=== PATIENT | male | born 1960 | race Caucasian/White ===

== ENCOUNTER → 2021-05-08 | Outpatient (CLI) | payer OTHER | LOC: ULTRA 13:57 | PROVIDERS: ATTEND Nurse Practitioner | DX: S83.242A Other tear of medial meniscus, current injury, left knee, initial encounter (principal); M25.462 Effusion, left knee; I82.432 Acute embolism and thrombosis of left popliteal vein; X58.XXXA Exposure to other specified factors, initial encounter; Y93.89 Activity, other specified; Y92.89 Other specified places as the place of occurrence of the external cause; Y99.8 Other external cause status ==

== ENCOUNTER → 2021-05-31 | Outpatient (CLI) | payer OTHER | LOC: ULTRA 10:53 | PROVIDERS: ATTEND Nurse Practitioner | DX: I82.409 Acute embolism and thrombosis of unspecified deep veins of unspecified lower extremity (principal) ==

== ENCOUNTER → 2021-07-01 | Outpatient (CLI) | payer OTHER | LOC: ULTRA 10:08 | PROVIDERS: ATTEND Internal Medicine Hematology & Oncology | DX: I82.432 Acute embolism and thrombosis of left popliteal vein (principal); I82.442 Acute embolism and thrombosis of left tibial vein; I82.411 Acute embolism and thrombosis of right femoral vein ==

== ENCOUNTER → 2021-12-30 | Outpatient (CLI) | payer OTHER | LOC: CAT 08:03 | PROVIDERS: ATTEND Family Medicine | DX: Z13.6 Encounter for screening for cardiovascular disorders (principal); I25.10 Atherosclerotic heart disease of native coronary artery without angina pectoris; E78.00 Pure hypercholesterolemia, unspecified ==

== ENCOUNTER → 2021-12-30 | Outpatient (CLI) | payer OTHER | LOC: ULTRA 08:08 | PROVIDERS: ATTEND Internal Medicine Hematology & Oncology | DX: I82.411 Acute embolism and thrombosis of right femoral vein (principal) ==